=== PATIENT | female | born 1965 | race Caucasian/White ===

== ENCOUNTER 2023-12-23 05:26 | Emergency (ER) | payer BC ==
[2023-12-23] MEDS ORDERED: KETOROLAC 30 MG/ML INJ ONE (05:53)
[2023-12-23] MEDS ORDERED: ONDANSETRON 4 MG/2 ML VIAL ONE (05:53)
[2023-12-23] MEDS ORDERED: MORPHINE 4 MG/ML SYR ONE (05:54)
[2023-12-23] MEDS ORDERED: NA CHLORIDE 0.9% 1,000 ML ONE (05:54)
[2023-12-23 06:33] LABS: Absolute Basophils 0.1 K/uL (0-0.5); Absolute Eosinophils 0.3 K/uL (0-0.5); Absolute Lymphocytes (CBC) 3.3 K/uL (0.7-4.9); Absolute Monocytes 0.6 K/uL (0.1-1.3); Absolute Neutrophil 4.3 K/uL (1.8-8.0); Basophils % 0.7 % (0-1.3); Eosinophils % 3.3 % (0-4.4); Hematocrit 40.6 % (36.0-45.0); Hemoglobin 13.6 g/dL (12.0-15.0); Lymphocytes % 39.2 % (15.3-44.8); MCH 28.8 pg (27.0-35.0); MCHC 33.4 g/dL (32.0-36.0); MCV 86.3 fL (80-100); MPV 7.3 fL (7.6-11.3); Monocytes % 6.6 % (3.3-12.3); Neutrophils % 50.2 % (41.7-73.7); Nucleated Red Blood Cells % 0.1 % (0-0); Platelets 296 thou/uL (152-406); RBC Red Blood Cell Count 4.71 M/uL (3.86-4.86); Red Cell Distribution Width 13.7 % (12.1-15.2)
[2023-12-23 06:43] LABS: ALT/SGPT 25 U/L (13-56); Albumin 3.4 g/dL (3.4-5.0); Alkaline Phosphatase 89 U/L (45-117); Anion Gap 7.8 mEq/L (5.0-15.0); BUN Blood Urea Nitrogen 19 mg/dL (7-18); Bicarbonate 27 mEq/L (21-32); Bilirubin Total 0.5 mg/dL (0.2-1.0); Globulin 3.3 g/dL (2.3-3.5); Glomerular Filtration Rate 70 ml/min (=/>90); Glucose Level 115 mg/dL (74-106); Potassium 3.8 mEq/L (3.5-5.1); Protein, Total 6.7 g/dL (6.4-8.2); Sodium Level 142 mEq/L (136-145)
--- NOTE | 2023-12-23 06:53 | ER ---
Nurse's Notes [facility] Name: Alecia Portillo Age: 58 yrs Sex: Female : 1965 Arrival Date: 12/23/2023 Time: 05:26 Bed 4 Private MD: Diagnosis: Pain in right knee;Sprain of lateral collateral ligament of right knee Presentation: 12/22 05:52 Chief complaint: Patient states: I can't put any weight on my knee I don't remember vc1 doing anything to hurt it. Coronavirus screen: Client denies travel out of the [place] in the last 14 days. At this time, the client does not indicate any symptoms associated with coronavirus-19. Ebola Screen: Patient negative for fever greater than or equal to 101.5 degrees Fahrenheit, and additional compatible Ebola Virus Disease symptoms Patient denies exposure to infectious person. Patient denies travel to an Ebola-affected area in the 21 days before illness onset. No symptoms or risks identified at this time. Initial Sepsis Screen: Does the patient meet any 2 criteria? No. Patient's initial sepsis screen is negative. Does the patient have a suspected source of infection? No. Patient's initial sepsis screen is negative. Risk Assessment: Do you want to hurt yourself or someone else? Patient reports no desire to harm self or others. Onset of symptoms was December 21, 2023. 05:52 Method Of Arrival: Wheelchair vc1 05:52 Acuity: JADE 4 vc1 Triage Assessment: 05:56 General: Appears in no apparent distress. uncomfortable, obese, well groomed, Behavior vc1 is calm, cooperative, appropriate for age. Pain: Complains of pain in right knee Pain does not radiate. Pain currently is 10 out of 10 on a pain scale. Quality of pain is described as sharp, Pain began 2-3 days ago. Is continuous, Aggravated by increased activity, repositioning, weight bearing, Noted to be grimacing, resistant to movement. Neuro: Level of Consciousness is awake, alert, obeys commands, Oriented to person, place, time, situation, Appropriate for age. Respiratory: Airway is patent Respiratory effort is even, unlabored, Respiratory pattern is regular, symmetrical, Breath sounds are clear. Musculoskeletal: pt unable to bear weight on right knee Reports pain in right knee. Historical: - Allergies: 05:55 PENICILLINS; vc1 - PMHx: 05:55 Hypertensive disorder; acid reflux; vc1 - PSHx: 05:55 section; vc1 - Immunization history:: Client reports having NOT received the Covid vaccine. Flu vaccine is up to date. - Infectious Disease History:: Denies. - Family history:: not pertinent. - Social history:: Smoking status: Patient denies any tobacco usage or history of. Screenin:56 Abuse screen: Denies threats or abuse. Nutritional screening: No deficits noted. vc1 Tuberculosis screening: No symptoms or risk factors identified. 06:06 [facility] ED Fall Risk Assessment (Adult) History of falling in the last 3 months, jw7 including since admission No falls in past 3 months (0 pts) Confusion or Disorientation No (0 pts) Intoxicated or Sedated No (0 pts) Impaired Gait Yes (1 pt) Mobility Assist Device Used No (0 pt) Altered Elimination No (0 pt) Score/Fall Risk Level 0 - 2 = Low Risk Oriented to surroundings, Maintained a safe environment, Educated pt \T\ family on fall prevention, incl call for assistance when getting out of bed. Assessment: 06:04 General: Appears in no apparent distress. uncomfortable, Behavior is calm, cooperative, jw7 appropriate for age. Pain: Complains of pain in right knee Pain does not radiate. Quality of pain is described as sharp, throbbing, Pain began suddenly, Is intermittent. Neuro: Level of Consciousness is awake, alert, obeys commands, Oriented to person, place, time, situation, Appropriate for age. Cardiovascular: Heart tones S1 S2 present Capillary refill < 3 seconds Clubbing of nail beds is absent JVD is absent Patient's skin is warm and dry. Respiratory: Airway is patent Trachea midline Respiratory effort is even, unlabored, Respiratory pattern is regular, symmetrical. GI: Abdomen is round non-distended, Bowel sounds present X 4 quads. Abd is soft and non tender X 4 quads. : No deficits noted. No signs and/or symptoms were reported regarding the genitourinary system. EENT: No deficits noted. No signs and/or symptoms were reported regarding the EENT system. Derm: Skin is intact, is healthy with good turgor, Skin is dry, Skin is normal, Skin temperature is warm. Musculoskeletal: Circulation, motion, and sensation intact. Range of motion: limited in right knee. 07:01 Reassessment: Patient appears in no apparent distress at this time. No changes from jw7 previously documented assessment. Patient and/or family updated on plan of care and expected duration. Pain level reassessed. Patient is alert, oriented x 3, equal unlabored respirations, skin warm/dry/pink. 07:10 Reassessment: Discharge pending medication administration. mb9 Vital Signs: 05:52 BP 140 / 87; Pulse 67; Resp 17; Temp 98.4; Pulse Ox 96% ; Weight 97.52 kg; Height 5 ft. vc1 8 in. ; Pain 10/10; 07:01 BP 137 / 78; Pulse 59; Resp 16 S; Pulse Ox 98% on R/A; jw7 05:52 Body Mass Index 32.69 (97.52 kg, 172.72 cm) vc1 05:52 Pain Scale: Adult vc1 ED Course: 05:30 Patient arrived in ED. gm2 05:33 Wojciech Mancilla MD is Attending Physician. darlyn 05:55 Triage completed. vc1 05:56 Arm band placed on left wrist. vc1 05:56 Patient has correct armband on for positive identification. Bed in low position. Call vc1 light in reach. Pulse ox on. NIBP on. 05:57 Cate Jean, RN is Primary Nurse. kd3 05:57 Inserted saline lock: 20 gauge in right antecubital area, using aseptic technique. kd3 Blood collected. 06:04 CBC with Diff Sent. jw7 06:04 Comprehensive Metabolic Panel Sent. jw7 06:06 No provider procedures requiring assistance completed. jw7 06:09 Knee Right 3 View XRAY In Process Unspecified. EDMS 06:21 US Extremity Venous Unilateral Ltd In Process Unspecified. EDMS 06:52 Rick Dove MD is Referral Physician. darlyn 07:38 IV discontinued, intact, bleeding controlled, No redness/swelling at site. Pressure mb9 dressing applied. Administered Medications: 06:04 Drug: Ondansetron IVP 4 mg IVP once; over 2 minutes Route: IVP; Site: right antecubital;jw7 07:01 Follow up: Response: No adverse reaction; Marked relief of symptoms jw7 06:04 Drug: NS 0.9% IV 1000 ml IV at 1 bolus Per protocol; 1000 mL bolus Route: IV; Rate: 1 jw7 bolus; Site: right antecubital; 07:01 Follow up: Response: No adverse reaction; IV Status: Completed infusion; IV Intake: jw7 1000ml 06:04 Not Given (Patient Refused): morphineor iv 4 mg IVP once over 4 mins jw7 06:04 Drug: Ketorolac IVP 30 mg IVP once Route: IVP; Site: right antecubital; jw7 07:01 Follow up: Response: No adverse reaction; Marked relief of symptoms jw7 07:00 Not Given (Patient Refused): ondansetron 4 mg IVP once; over 2 minutes jw7 07:00 Drug: Decadron - Dexamethasone IVP 10 mg IVP once Route: IVP; Site: right antecubital; jw7 07:01 Follow up: Response: No adverse reaction; Medication administered at discharge. jw7 07:30 Drug: Diazepam PO 10 mg PO once Route: PO; mb9 07:37 Follow up: Response: No adverse reaction mb9 Medication: 06:06 VIS not applicable for this client. jw7 Intake: 07:01 IV: 1000ml; Total: 1000ml. jw7 Outcome: 06:53 Discharge ordered by . darlyn 07:38 Discharged to home with crutches, with family, mb9 07:38 Condition: stable 07:38 Discharge instructions given to patient, Instructed on discharge instructions, follow up and referral plans. Demonstrated understanding of instructions, follow-up care, medications, Prescriptions given X 3, 07:38 Patient left the ED. mb9 Signatures: Dispatcher [employer] EDWojciech Cruz MD MD cha Doucette, Kyli RN RN kd3 Destini Ji RN RN vc1 Juliana Dueñas RN RN jw7 Caroline Piña RN RN mb9 Elizabet Howell 2
--- NOTE | 2023-12-23 06:53 | EDPHYS ---
Physician Documentation [facility] Name: Alecia Portillo Age: 58 yrs Sex: Female : 1965 Arrival Date: 12/23/2023 Time: 05:26 Bed 4 Private MD: ANASTACIO Physician Wojciech Mancilla HPI: 12/22 05:42 This 58 yrs old Female presents to ER via Unassigned with complaints of Knee darlyn Pain, PT CAN'T WALK. 05:42 The patient presents with decreased range of motion, pain, tenderness. The complaints darlyn affect the lateral aspect of right knee, posterior aspect of right knee, medial aspect of right knee and right knee. Context: The problem was sustained at an unknown site. Onset: The symptoms/episode began/occurred 3 day(s) ago. Modifying factors: The symptoms are alleviated by remaining still, the symptoms are aggravated by nothing. Associated signs and symptoms: The patient has no apparent associated signs or symptoms. Treatment prior to arrival includes: aren wrap, icing the affected extremity. Severity of symptoms: At their worst the symptoms were moderate, in the emergency department the symptoms are unchanged. The patient has not experienced similar symptoms in the past. Historical: - Allergies: 05:55 PENICILLINS; vc1 - PMHx: 05:55 Hypertensive disorder; acid reflux; vc1 - PSHx: 05:55 section; vc1 - Immunization history:: Client reports having NOT received the Covid vaccine. Flu vaccine is up to date. - Infectious Disease History:: Denies. - Family history:: not pertinent. - Social history:: Smoking status: Patient denies any tobacco usage or history of. ROS: 05:46 Constitutional: Negative for fever, chills, and weight loss, Eyes: Negative for injury, darlyn pain, redness, and discharge, ENT: Negative for injury, pain, and discharge, Neck: Negative for injury, pain, and swelling, Cardiovascular: Negative for chest pain, palpitations, and edema, Respiratory: Negative for shortness of breath, cough, wheezing, and pleuritic chest pain, Abdomen/GI: Negative for abdominal pain, nausea, vomiting, diarrhea, and constipation, Back: Negative for injury and pain, : Negative for injury, bleeding, discharge, and swelling, Skin: Negative for injury, rash, and discoloration, Neuro: Negative for headache, weakness, numbness, tingling, and seizure, Psych: Negative for depression, anxiety, suicide ideation, homicidal ideation, and hallucinations, Allergy/Immunology: Negative for hives, rash, and allergies, Endocrine: Negative for neck swelling, polydipsia, polyuria, polyphagia, and marked weight changes, Hematologic/Lymphatic: Negative for swollen nodes, abnormal bleeding, and unusual bruising, 05:46 MS/extremity: Positive for pain, tenderness, of the lateral aspect of right knee, posterior aspect of right knee, medial aspect of right knee and right knee, Exam: 05:46 Constitutional: This is a well developed, well nourished patient who is awake, alert, darlyn and in no acute distress. Head/Face: Normocephalic, atraumatic. Eyes: Pupils equal round and reactive to light, extra-ocular motions intact. Lids and lashes normal. Conjunctiva and sclera are non-icteric and not injected. Cornea within normal limits. Periorbital areas with no swelling, redness, or edema. ENT: Nares patent. No nasal discharge, no septal abnormalities noted. Tympanic membranes are normal and external auditory canals are clear. Oropharynx with no redness, swelling, or masses, exudates, or evidence of obstruction, uvula midline. Mucous membranes moist. Neck: Trachea midline, no thyromegaly or masses palpated, and no cervical lymphadenopathy. Supple, full range of motion without nuchal rigidity, or vertebral point tenderness. No Meningismus. Chest/axilla: Normal chest wall appearance and motion. Nontender with no deformity. No lesions are appreciated. Cardiovascular: Regular rate and rhythm with a normal S1 and S2. No gallops, murmurs, or rubs. Normal PMI, no JVD. No pulse deficits. Respiratory: Lungs have equal breath sounds bilaterally, clear to auscultation and percussion. No rales, rhonchi or wheezes noted. No increased work of breathing, no retractions or nasal flaring. Abdomen/GI: Soft, non-tender, with normal bowel sounds. No distension or tympany. No guarding or rebound. No evidence of tenderness throughout. Back: No spinal tenderness. No costovertebral tenderness. Full range of motion. Female : Normal external genitalia. Skin: Warm, dry with normal turgor. Normal color with no rashes, no lesions, and no evidence of cellulitis. Neuro: Awake and alert, GCS 15, oriented to person, place, time, and situation. Cranial nerves II-XII grossly intact. Motor strength 5/5 in all extremities. Sensory grossly intact. Cerebellar exam normal. Normal gait. Psych: Awake, alert, with orientation to person, place and time. Behavior, mood, and affect are within normal limits. 05:46 Musculoskeletal/extremity: ROM: full active range of motion, full passive range of motion, limited active range of motion due to pain, limited passive range of motion due to pain, in the right leg, Circulation is intact in all extremities. Sensation intact. Compartment Syndrome exam of affected extremity: is normal. Weight bearing: is unable to bear weight, DVT Exam: no swelling, negative Homans' sign noted on exam, no appreciated bluish discoloration, no erythema, no increased warmth, pain, tenderness, Vital Signs: 05:52 BP 140 / 87; Pulse 67; Resp 17; Temp 98.4; Pulse Ox 96% ; Weight 97.52 kg; Height 5 ft. vc1 8 in. ; Pain 10/10; 07:01 BP 137 / 78; Pulse 59; Resp 16 S; Pulse Ox 98% on R/A; jw7 05:52 Body Mass Index 32.69 (97.52 kg, 172.72 cm) vc1 05:52 Pain Scale: Adult vc1 MDM: 05:33 Patient medically screened. [facility] 05:47 Differential diagnosis: contusion, tendonitis. Data reviewed: vital signs, nurses [facility] notes, lab test result(s), radiologic studies, doppler, plain films. Consideration of Admission/Observation Escalation of care including admission/observation considered. I considered the following discharge prescriptions or medication management in the emergency department Medications were administered in the Emergency Department. See MAR. Independent interpretation of the following test(s) in the Emergency Department X-Ray: My interpretation is knee x ray. Test considered but Not performed: MRI: no mri knee. Historians other than the Patient: Family Member: son and daughter in law. Care significantly affected by the following chronic conditions: Hypertension. 12/22 05:41 Order name: CBC with Diff; Complete Time: 06:[address] [facility] 12/22 05:41 Order name: Comprehensive Metabolic Panel; Complete Time: 07:[address] [facility] 12/22 05:41 Order name: US Extremity Venous Unilateral Ltd [facility] 12/22 05:41 Order name: Knee Right 3 View XRAY [facility] 12/22 05:42 Order name: Knee Immobilizer; Complete Time: 06:[address] [facility] 12/22 05:42 Order name: Ice pack; Complete Time: :[address] [facility] 12/22 07:23 Order name: Crutches; Complete Time: 07:30 darlyn Administered Medications: 06:04 Drug: Ondansetron IVP 4 mg IVP once; over 2 minutes Route: IVP; Site: right antecubital;jw7 07:01 Follow up: Response: No adverse reaction; Marked relief of symptoms jw7 06:04 Drug: NS 0.9% IV 1000 ml IV at 1 bolus Per protocol; 1000 mL bolus Route: IV; Rate: 1 jw7 bolus; Site: right antecubital; 07:01 Follow up: Response: No adverse reaction; IV Status: Completed infusion; IV Intake: jw7 1000ml 06:04 Not Given (Patient Refused): morphineor iv 4 mg IVP once over 4 mins jw7 06:04 Drug: Ketorolac IVP 30 mg IVP once Route: IVP; Site: right antecubital; jw7 07:01 Follow up: Response: No adverse reaction; Marked relief of symptoms jw7 07:00 Not Given (Patient Refused): ondansetron 4 mg IVP once; over 2 minutes jw7 07:00 Drug: Decadron - Dexamethasone IVP 10 mg IVP once Route: IVP; Site: right antecubital; jw7 07:01 Follow up: Response: No adverse reaction; Medication administered at discharge. jw7 07:30 Drug: Diazepam PO 10 mg PO once Route: PO; mb9 07:37 Follow up: Response: No adverse reaction mb9 Disposition Summary: 12/23/23 06:53 Discharge Ordered Notes: Location: Home darlyn Problem: new darlyn Symptoms: have improved darlyn Condition: Stable darlyn Diagnosis - Pain in right knee darlyn - Sprain of lateral collateral ligament of right knee darlyn Followup: darlyn - With: Private Physician - When: 2 - 3 days - Reason: Recheck today's complaints, Continuance of care, Re-evaluation by your physician Followup: darlyn - With: Rick Dove MD - When: 2 - 3 days - Reason: Recheck today's complaints, Re-evaluation by your physician Discharge Instructions: - Discharge Summary Sheet darlyn - Joint Pain darlyn - How to Use a Knee Brace darlyn - Musculoskeletal Pain darlyn - Acute Knee Pain, Adult darlyn - How to Use Cold Therapy, [id number] darlyn - Arthritis, [id number] darlyn Forms: - Medication Reconciliation Form darlyn - Antibiotic Education darlyn - Prescription Opioid Use darlyn - Patient Portal Instructions darlyn - Leadership Thank You Letter darlyn - Work release form jr12 Prescriptions: - acetaminophen-codeine 300-30 mg Oral tablet - take 2 tablet ORAL route every 6 hours as needed for pain; 20 tablet; Refills: darlyn 0, Product Selection Permitted - dexamethasone 4 mg Oral tablet - take 1 tablet ORAL route once daily; 4 tablet; Refills: 0, Product Selection darlyn Permitted - Diclofenac Sodium 75 mg Oral Tablet Sustained Release - take 1 tablet ORAL route 2 times per day; 30 tablet; Refills: 0, Product darlyn Selection Permitted Signatures: Dispatcher [employer] EDMS Wojciech Mancilla MD MD cha Calcote, Vanessa RN RN vc1 Juliana Dueñas RN RN jw7 Caroline Piña, RN RN mb9 Corrections: (The following items were deleted from the chart) 05:42 05:41 Extremity Venous Uni Ltd+US.RAD.BRZ ordered. EDMS EDMS 05:42 05:42 CBC+H.LAB.BRZ ordered. EDMS EDMS 05:42 05:42 COMPREHENSIVE METABOLIC PANEL+C.LAB.BRZ ordered. EDMS EDMS 05:42 05:42 Knee Right 3 View+RAD.RAD.BRZ ordered. EDMS EDMS
[2023-12-23] MEDS ORDERED: dexAMETHasone 10 MG/ML VIAL ONE (06:57)
[2023-12-23 06:59] LABS: AST/SGOT < 10 U/L (15-37)
[2023-12-23] MEDS ORDERED: DIAZEPAM 5 MG TABLET ONE (07:27)
[2023-12-23 07:46] VITALS: BP 137/78; TEMP 98.4; O2SAT 98
--- NOTE | 2023-12-25 11:27 | RAD REPORT ---
EXAM DESCRIPTION: US - Extremity Venous Uni Ltd - 12/23/2023 6:20 am CLINICAL HISTORY: PAIN. COMPARISON: None. FINDINGS: Color flow imaging, webber scale imaging including spectral analysis and dynamic duplex Dopp ler evaluation of rightlower extremity is performed. Normal compressibility, color flow, competency and phasicity is noted There is no evidence of intralu jesi thrombus or intimal thickening. No demonstrable cysts, fluid collection or masses are seen along the course of the venous examination . IMPRESSION: Normal right lower extremity venous duplex Doppler study. No evidence of deep venous thr ombosis. Electronically signed by: Esperanza Oglesby MD 12/23/2023 07:11 AM CDT RP Due to temporary technical issues with the PACS/Fluency reporting system, reports are being signed by the in house radiologist without review as a courtesy to ensure prompt reporting. The interpreting r adiologist is fully responsible for the content of the report.
--- NOTE | 2023-12-25 11:28 | RAD REPORT ---
EXAM DESCRIPTION: RAD - Knee Right 3 View - 12/23/2023 6:07 am CLINICAL HISTORY: The patient is 58 years old and is Female; PAIN TECHNIQUE: Three views of the right knee. COMPARISON: No relevant prior studies available. FINDINGS: Bones/joints: Unremarkable. No acute fracture. No dislocation. Soft tissues: Unremarkable. IMPRESSION: No acute fracture or dislocation. Electronically signed by: Tariq Quiros MD 12/23/2023 06:52 AM CDT RP 8 Due to temporary technical issues with the PACS/Fluency reporting system, reports are being signed by the in house radiologist without review as a courtesy to ensure prompt reporting. The interpreting r adiologist is fully responsible for the content of the report.
== END 2023-12-23 07:38 | disposition home or self-care (01) ==
LOC: ER 05:26
DX: S83.421A Sprain of lateral collateral ligament of right knee, initial encounter (principal)
CPT/HCPCS: 96361; 85025; 36415; 80053; 73562; 93971; 96375; 96374; 99284; J1100; J2405; J7030